=== PATIENT | female | born 1995 | race Caucasian/White ===

== ENCOUNTER 2020-06-17 04:35 | Inpatient (IN) ==
[2020-06-17] MEDS ORDERED: OXYTOCIN 30 UNITS/500 ML BAG IV PRN (05:32)
[2020-06-17 05:54] LABS: Hematocrit (blood only) 37.4 % (37-47); Hemoglobin 12.6 g/dL (12.0-16.0); Mean Corpuscular Hemoglobin 31.1 pg (25-34); Mean Corpuscular Volume 92.3 fL (80-100); Mean Platelet Volume 12.1 fL (7.4-10.4); Platelet Count 151 K/uL (130-400); RDW Coefficient of Variation 13.4 % (11.5-14.5); RDW Standard Deviation 45.5 fL (36.4-46.3); Red Blood Count 4.05 M/uL (4.2-5.4)
[2020-06-17] MEDS: LACTATED RINGER'S 1,000 ML IV PRN ×3 (06:08→12:09)
[2020-06-17 06:09] LABS: Mean Corpuscular Hgb Conc 33.7 g/dL (32-36)
[2020-06-17] MEDS ORDERED: ePHEDrine sulfate 50 MG/ML AMP ONE (06:13)
[2020-06-17] MEDS ORDERED: SODIUM CHLORIDE 0.9% INJ 10 ML VIAL ONE (06:13)
[2020-06-17] MEDS ORDERED: BUPIVACAINE 0.25% 30 ML VIAL ONE (06:14)
[2020-06-17] MEDS ORDERED: fentaNYL citrate 100 MCG/2 ML VIAL ONE ×2 (06:14→13:35)
[2020-06-17] MEDS ORDERED: fentaNYL 2MCG/ML ROPIVACAINE 1.25MG/ML 100 ML BAG EPI ONE (06:15)
--- NOTE | 2020-06-17 06:42 | Anesthesiology Consultation ---
Date of Service June 17, 2020 Assessment & Plan Chart Review Chart Review: Acceptable Risk for Surgery, Patient NOT seen in Pre Admission Testing and Acceptable Risk for Labor Epidural Consults Requested none ASA ASA2 Proposed Anesthesia Anesthesia Type: Labor Epidural and CSE Risk / Benefits Reviewed With: PT / POA / Parent / Guardian, Accepts Plan and Informed Consent Obtained History Height/Weight Height: 5 ft 3 in Weight: 68.946 kg Allergies Allergy/AdvReac Type Severity Reaction Status Date / Time No Known Allergies Allergy Unverified 07/30/19 21:00 Medications Home Medications Medication Instructions Recorded Confirmed Last Taken PNV cmb#95-ferrous fumarate-FA 1 tab PO DAILY 07/30/19 06/17/20 06/16/20 [] NPO Date Last Intake of Fluids: 06/17/20 Time Last Intake of Fluids: 02:00 Date Last Intake of Solids: 06/17/20 Time Last Intake of Solids: 02:00 Past Medical History Medical History Miscarriage Exercise / Class Metabolic Activity II 4-5 Yardwork/Stairs/Walk up hill Past Family History Family History Other No pertinent family history in first degree relatives Past Surgical History Surgical History No pertinent past surgical history [place] teeth extracted Past Anesthesia History No Hx of Anesthesia Complications and No Family Hx of Anesthesia Complications History of PONV No Hx of PONV and No Hx of Motion Sickness Social History Smoking Status: Never smoker Hx Alcohol Use: No Hx Substance Use: No Physical Exam Vital Signs Last Vital Signs Temp 36.8 C 06/17/20 04:51 Pulse 95 H 06/17/20 04:48 Resp 18 06/17/20 04:51 BP 132/73 06/17/20 04:48 Constitutional + obese ENMT Mouth: + small oral opening; no dentition abnormality Thyromental Distance: < 3.5 Finger Breadths Mallampati Class: II Neck normal visual inspection and trachea midline; neck extension not limited Respiratory normal respiratory effort Auscultation: lungs clear to auscultation bilaterally Cardiovascular Rate/Rhythm: regular rate and regular rhythm Heart Sounds: no murmur Vessels: no carotid bruit Musculoskeletal Spine: lumbar spine normal to inspection; normal cervical ROM Neurologic moves all extremities Motor/Sensory: no sensory deficit Psychiatric Orientation: alert and oriented x 3 Testing Laboratory Results 06/17/20 05:43
[2020-06-17] MEDS ORDERED: NALOXONE HCL 1 MG in SODIUM CHLORIDE 0.9% 1000ML 1,000 ML IV PRN ×2 (07:02→13:54)
[2020-06-17] MEDS ORDERED: NALOXONE HCL 0.4 MG/1 ML VIAL/CARP IV PRN ×2 (07:02→13:54)
[2020-06-17] MEDS ORDERED: fentaNYL 2MCG/ML ROPIVACAINE 1.25MG/ML 100 ML BAG EPI PRN (07:02)
[2020-06-17] MEDS ORDERED: PROMETHAZINE HCL 25 MG in SODIUM CHLORIDE 0.9% 50 ML IV PRN (07:02)
[2020-06-17] MEDS ORDERED: diphenhydrAMINE 50 MG/ML VIAL IV PRN ×2 (07:02→13:54)
[2020-06-17] MEDS ORDERED: ONDANSETRON INJ 2 MG/ML 2 ML VIAL IV PRN ×2 (07:02→13:54)
[2020-06-17] MEDS ORDERED: ePHEDrine sulfate 50 MG/ML AMP IV PRN ×2 (07:02→13:54)
--- NOTE | 2020-06-17 09:55 | Obstetrical Progress Note ---
Date of Service June 17, 2020 Subjective pt doing well FHR; CAT1 Ctx 2-4mins Ve 8// SROM- Clear Results & Data ([facility]) Vital Signs (Past 12 Hours) Vital Signs Temp Pulse Resp BP Pulse Ox 06/17/20 09:50 80 98 06/17/20 09:49 70 133/75 06/17/20 09:45 73 97 06/17/20 09:40 75 98 06/17/20 09:35 75 97 06/17/20 09:33 73 131/77 06/17/20 09:30 70 98 06/17/20 09:25 72 97 06/17/20 09:20 68 98 06/17/20 09:17 70 128/76 06/17/20 09:15 73 97 06/17/20 09:10 73 96 06/17/20 09:05 69 95 06/17/20 09:02 68 18 127/79 06/17/20 09:00 70 97 06/17/20 08:55 69 98 06/17/20 08:50 74 98 06/17/20 08:48 62 125/78 06/17/20 08:45 36.6 C 67 20 98 06/17/20 08:40 77 97 06/17/20 08:35 72 98 06/17/20 08:33 70 18 127/74 06/17/20 08:30 69 98 06/17/20 08:25 68 98 06/17/20 08:20 74 98 06/17/20 08:17 83 130/62 06/17/20 08:15 72 97 06/17/20 08:10 77 98 06/17/20 08:05 78 97 06/17/20 08:02 73 18 114/69 06/17/20 08:00 74 97 06/17/20 07:55 74 97 06/17/20 07:50 74 97 06/17/20 07:47 78 103/64 06/17/20 07:45 81 97 06/17/20 07:40 83 96 06/17/20 07:35 93 H 97 06/17/20 07:30 99 H 18 109/60 97 06/17/20 07:28 84 18 108/57 L 06/17/20 07:26 86 18 108/56 L 06/17/20 07:25 85 97 06/17/20 07:24 90 18 115/59 L 06/17/20 07:22 92 H 18 111/58 L 06/17/20 07:20 98 H 18 111/57 L 97 06/17/20 07:18 93 H 18 108/55 L 06/17/20 07:16 96 H 18 109/59 L 06/17/20 07:15 91 H 97 06/17/20 07:14 87 18 109/65 06/17/20 07:12 95 H 18 109/60 06/17/20 07:10 92 H 104/61 97 06/17/20 07:08 94 H 107/55 L 06/17/20 07:06 92 H 107/58 L 06/17/20 07:05 102 H 97 06/17/20 07:04 90 110/61 06/17/20 07:02 82 109/59 L 06/17/20 07:00 85 112/61 97 06/17/20 06:58 73 109/62 06/17/20 06:55 85 97 06/17/20 06:50 88 98 06/17/20 06:45 86 99 06/17/20 06:43 104 H 91 06/17/20 06:40 83 99 06/17/20 06:30 36.8 C 06/17/20 04:51 36.8 C 18 06/17/20 04:48 95 H 132/73
[2020-06-17] MEDS ORDERED: TERBUTALINE SULFATE 1 MG/ML VIAL ONE (13:02)
[2020-06-17] MEDS ORDERED: CITRIC ACID/SODIUM CITRATE 15 ML UDC ONE (13:10)
[2020-06-17] MEDS ORDERED: ceFAZolin 2000MG 2,000 MG/15 ML SYR IV ONE (13:15)
[2020-06-17] MEDS ORDERED: CITRIC ACID/SODIUM CITRATE 15 ML UDC PO ONE (13:15)
[2020-06-17] MEDS ORDERED: MoRPHine SULFATE PF 1 MG/ML 10 ML AMP/VIAL ONE (13:39)
[2020-06-17] MEDS ORDERED: MoRPHine SULFATE PF 1 MG/ML 10 ML AMP/VIAL INT SPINAL ONE (13:54)
[2020-06-17] MEDS ORDERED: MEPERIDINE HCL 25 MG/ML CARP/VIAL IV PRN (13:54)
[2020-06-17] MEDS ORDERED: NALOXONE HCL 0.08 MG in SYRINGE 1.8 ML IV PRN (13:54)
[2020-06-17] MEDS ORDERED: LACTATED RINGER'S 500 ML IV PRN (13:54)
[2020-06-17] MEDS ORDERED: PROMETHAZINE HCL 6.25 MG in SODIUM CHLORIDE 0.9% 50 ML IV PRN (13:54)
[2020-06-17] MEDS ORDERED: HYDROmorphone INJ 0.5 MG/0.5 ML SYR IV PRN (13:54)
[2020-06-17] MEDS ORDERED: LACTATED RINGER'S 1,000 ML IV SCH ×2 (13:57→14:30)
[2020-06-17] MEDS ORDERED: SODIUM CHLORIDE 0.9% 1000ML 1,000 ML IV SCH (14:00)
[2020-06-17] MEDS ORDERED: NO NARCOTICS OR SEDATIVES SCH (14:00)
[2020-06-17] MEDS ORDERED: OXYTOCIN 10 UNITS/ML VIAL ONE (14:01)
[2020-06-17] MEDS ORDERED: LIDOCAINE/EPINEPHRINE 2% 1:200,000 20 ML SDV ONE (14:01)
[2020-06-17] MEDS ORDERED: KETOROLAC 30 MG/ML VIAL ONE (14:01)
[2020-06-17] MEDS ORDERED: miSOPROStoL 200 MCG TAB ONE (14:13)
[2020-06-17] MEDS ORDERED: MAGNESIUM HYDROXIDE SUSP 30 ML UDC PO PRN (14:27)
[2020-06-17] MEDS ORDERED: HYDROCORTISONE ACETATE 25 MG SUPP PR PRN (14:27)
[2020-06-17] MEDS ORDERED: SUPERCREAM 0.870% 15 GM JAR EXT PRN (14:27)
[2020-06-17] MEDS ORDERED: SENNA 8.6 MG TAB PO PRN (14:27)
[2020-06-17] MEDS ORDERED: DIPHTHERIA/TETANUS/PERTUSSIS 0.5 ML SYR/VIAL IM ONE (14:27)
[2020-06-17] MEDS ORDERED: BENZOCAINE 20% AER SPR 82.5 GM CAN EXT PRN (14:27)
--- NOTE | 2020-06-17 14:27 | Obstetrical Progress Note ---
Date of Service June 17, 2020 Assessment & Plan Admission and Anticipated Discharge Date Admission Date: June 17, 2020 Subjective Late Note Entry Called to evaluate pt's cervical exam FHR; CAT1 VE; ? breech/ 10cm dilated Bedside sono; VT C/sec discussed with pt consent signed\ Anesthesia notified Results & Data ([facility]) Vital Signs (Past 12 Hours) Vital Signs Temp Pulse Resp BP Pulse Ox 06/17/20 13:18 142 H 120/60 06/17/20 13:15 118 H 97 06/17/20 13:10 126 H 99 06/17/20 13:05 122 H 98 06/17/20 13:00 108 H 97 06/17/20 12:55 115 H 98 06/17/20 12:50 88 99 06/17/20 12:48 83 137/83 06/17/20 12:45 77 99 06/17/20 12:40 74 97 06/17/20 12:35 71 97 06/17/20 12:34 64 134/77 06/17/20 12:30 75 97 06/17/20 12:25 71 98 06/17/20 12:20 81 98 06/17/20 12:17 68 131/78 06/17/20 12:15 68 98 06/17/20 12:10 78 98 06/17/20 12:05 85 98 06/17/20 12:03 77 119/67 06/17/20 12:00 77 98 06/17/20 11:55 82 98 06/17/20 11:50 84 98 06/17/20 11:45 75 97 06/17/20 11:40 78 97 06/17/20 11:35 80 97 06/17/20 11:33 77 20 124/72 06/17/20 11:30 76 97 06/17/20 11:25 78 98 06/17/20 11:20 72 98 06/17/20 11:17 83 119/70 06/17/20 11:15 86 98 06/17/20 11:10 71 97 06/17/20 11:05 74 97 06/17/20 11:04 76 16 120/70 06/17/20 11:00 69 98 06/17/20 10:55 36.4 C L 77 18 98 06/17/20 10:50 77 98 06/17/20 10:48 71 123/70 06/17/20 10:45 71 98 06/17/20 10:40 72 98 06/17/20 10:35 71 99 06/17/20 10:32 70 132/82 06/17/20 10:30 82 99 06/17/20 10:25 76 98 06/17/20 10:20 66 98 06/17/20 10:17 71 137/82 06/17/20 10:15 76 98 06/17/20 10:10 72 98 06/17/20 10:05 71 99 06/17/20 10:02 71 18 127/76 06/17/20 10:00 89 98 06/17/20 09:55 76 98 06/17/20 09:50 80 98 06/17/20 09:49 70 133/75 06/17/20 09:45 73 97 06/17/20 09:40 75 98 06/17/20 09:35 75 97 06/17/20 09:33 73 18 131/77 06/17/20 09:30 70 98 06/17/20 09:25 72 97 06/17/20 09:20 68 98 06/17/20 09:17 70 128/76 06/17/20 09:15 73 97 06/17/20 09:10 73 96 06/17/20 09:05 69 95 06/17/20 09:02 68 18 127/79 06/17/20 09:00 70 97 06/17/20 08:55 69 98 06/17/20 08:50 74 98 06/17/20 08:48 62 125/78 06/17/20 08:45 36.6 C 67 20 98 06/17/20 08:40 77 97 06/17/20 08:35 72 98 06/17/20 08:33 70 18 127/74 06/17/20 08:30 69 98 06/17/20 08:25 68 98 06/17/20 08:20 74 98 06/17/20 08:17 83 130/62 06/17/20 08:15 72 97 06/17/20 08:10 77 98 06/17/20 08:05 78 97 06/17/20 08:02 73 18 114/69 06/17/20 08:00 74 97 06/17/20 07:55 74 97 06/17/20 07:50 74 97 06/17/20 07:47 78 103/64 06/17/20 07:45 81 97 06/17/20 07:40 83 96 06/17/20 07:35 93 H 97 06/17/20 07:30 99 H 18 109/60 97 06/17/20 07:28 84 18 108/57 L 06/17/20 07:26 86 18 108/56 L 06/17/20 07:25 85 97 06/17/20 07:24 90 18 115/59 L 06/17/20 07:22 92 H 18 111/58 L 06/17/20 07:20 98 H 18 111/57 L 97 06/17/20 07:18 93 H 18 108/55 L 06/17/20 07:16 96 H 18 109/59 L 06/17/20 07:15 91 H 97 06/17/20 07:14 87 18 109/65 06/17/20 07:12 95 H 18 109/60 06/17/20 07:10 92 H 104/61 97 06/17/20 07:08 94 H 107/55 L 06/17/20 07:06 92 H 107/58 L 06/17/20 07:05 102 H 97 06/17/20 07:04 90 110/61 06/17/20 07:02 82 109/59 L 06/17/20 07:00 85 112/61 97 06/17/20 06:58 73 109/62 06/17/20 06:55 85 97 06/17/20 06:50 88 98 06/17/20 06:45 86 99 06/17/20 06:43 104 H 91 06/17/20 06:40 83 99 06/17/20 06:30 36.8 C 06/17/20 04:51 36.8 C 18 06/17/20 04:48 95 H 132/73
--- NOTE | 2020-06-17 14:32 | Post Operative Brief Note ---
Immediate Post Op Note v1 Date of Surgery June 17, 2020 Pre & Post Diagnosis Operation Date: 06/17/20 13:10 Pre-Op Diagnosis: Breech presentation. Post-Op Diagnosis: Same as above. Delivery of live male child at 1338 I identified the patient and participated in the time-out.: Yes Procedure Operation Date: 06/17/20 13:10 Actual Procedures p Section in LD(Bilateral) - Howard Freeman MD Surgeon Howard Freeman MD [employer] Agent dr haines Estimated Blood Loss 600 Findings Consistent with Post-Op Diagnosis Drains López Catheter
[2020-06-17] MEDS ORDERED: miSOPROStoL 200 MCG TAB PR ONE (14:39)
[2020-06-17] MEDS ORDERED: OXYTOCIN 10 UNITS/ML VIAL IM ONE (14:39)
[2020-06-17] MEDS ORDERED: OXYTOCIN 20 UNITS in LACTATED RINGER'S 1,000 ML IV SCH (14:45)
--- NOTE | 2020-06-17 14:50 | Operative Report (OR) ---
DATE OF OPERATION: 06/17/2020 INDICATION FOR PROCEDURE: A 24-year-old who presented with spontaneous rupture of membranes and was in labor. She was fully dilated and was found to have a sánchez breech presentation. Decision was therefore made to perform a section. The patient agreed to procedure and signed consent for surgery. She was taken to the operating room where she delivered a live in sánchez breech presentation. Weight and Apgars in the pediatric record. PREOPERATIVE DIAGNOSES: 1. at term. 2. Breech presentation. POSTOPERATIVE DIAGNOSES: Same. PROCEDURES: section for sánchez breech presentation. SURGEON: Howard Freeman MD SPOOL WINDER: Dr. Estefanía MD ANESTHESIA: Epidural. Dr. Hall is the attendant. ESTIMATED BLOOD LOSS: 600 mL IV FLUIDS: 1200 mL URINE OUTPUT: 50 mL clear urine at end of procedure. FINDINGS: Live infant in sánchez breech presentation. Uterus, adnexa and abdomen otherwise appeared grossly normal. PATHOLOGY: Placenta, cord blood and cord gas. DRAINS: López catheter. COMPLICATIONS: None. DISPOSITION: Stable to recovery room. DESCRIPTION OF PROCEDURE: The patient was taken to the operating room where she was prepped and draped in normal sterile fashion. A timeout was called. A Pfannenstiel incision was made with a scalpel and carried down to the fascia. Fascia was incised in the midline and extended laterally on both sides. Rectus abdominis muscle was sharply dissected in the fascia superiorly and inferiorly. Peritoneum was identified and entered sharply. Once inside the abdomen, findings were as dictated above. An Reginald retractor was placed in the abdomen for retraction. Vesicouterine peritoneum was sharply dissected off the lower segment of the uterus. A transverse incision was made in the uterus and extended laterally on both sides. is delivered with breech maneuvers, buttocks followed by both legs, torso, both arms and head. Cord was clamped and cut and handed over to the waiting pediatric team. Details of the 's information is in the respective pediatric record. Cord blood was obtained as well as cord gas. Placenta was manually removed. Uterus was exteriorized and cleared of all clots and debris. Uterus was closed in 2 layers with Vicryl. There was good hemostasis post repair. Copious amount of irrigation was used to irrigate the abdomen. Uterus was returned to the abdominal cavity. Once again, hemostasis was established. Peritoneum and rectus abdominus muscle loosely reapproximated together. Fascia was closed in a running fashion with Vicryl stitch. SubQ space was irrigated and skin was closed with 4-0 Monocryl. All instruments were removed from the abdomen and accounted for x2 including sponges, needles and retractors. Baby and mother are doing well in recovery. I attest to the content of the Intraoperative Record and any orders documented therein. Any exception s are noted below.
[2020-06-17 14:51] LABS: Base Excess Cord Venous Blood -3.9 mEq/L (-7.7-1.9); Cord Venous Blood HCO3 22 mmol/L (18.4-26.8); Cord Venous Blood PCO2 43 mmHg (30.4-57.2); Cord Venous Blood PO2 34 mmHg (14.1-43.3); Cord Venous Blood pH 7.33 (7.20-7.44)
--- NOTE | 2020-06-17 15:14 | Anesthesia Procedure Note ---
Date of Service June 17, 2020 Anesthesia Post Epidural Note Vital Signs Vital Signs: Temp Pulse Resp BP Pulse Ox 36.7 C 123 H 18 157/66 H 96 06/17/20 14:25 06/17/20 15:10 06/17/20 14:45 06/17/20 15:06 06/17/20 15:10 Notes Mental Status: alert / awake / arousable Nausea / Vomiting: adequately controlled Pain: adequately controlled Airway Patency, RR, SpO2: stable & adequate BP & HR: stable & adequate Hydration State: stable & adequate Neuraxial Anesthesia: was administered and sensory block is resolving Anesthetic Complications: no major complications apparent and Pt Satisfied with anesthetic care Epidural: Removed without complications and With tip intact
--- NOTE | 2020-06-17 15:14 | Anesthesiology Progress Note ---
Date of Service June 17, 2020 Anesthesia Post Procedure Vital Signs Vital Signs: Temp Pulse Resp BP Pulse Ox 06/17/20 15:10 123 H 96 06/17/20 15:06 123 H 157/66 H 06/17/20 15:05 120 H 96 06/17/20 15:00 114 H 96 06/17/20 14:56 148/61 H 06/17/20 14:55 113 H 97 06/17/20 14:50 114 H 96 06/17/20 14:46 113 H 152/63 H 06/17/20 14:45 114 H 18 97 06/17/20 14:40 119 H 97 06/17/20 14:36 125 H 114/53 L 06/17/20 14:35 120 H 18 97 06/17/20 14:31 116 H 94 06/17/20 14:30 117 H 96 06/17/20 14:25 36.7 C 96 H 20 110/75 96 06/17/20 13:18 142 H 120/60 06/17/20 13:15 118 H 97 06/17/20 13:10 126 H 99 06/17/20 13:05 122 H 98 06/17/20 13:00 108 H 97 06/17/20 12:55 115 H 98 06/17/20 12:50 88 99 06/17/20 12:48 83 137/83 06/17/20 12:45 77 99 06/17/20 12:40 74 97 06/17/20 12:35 71 97 06/17/20 12:34 64 134/77 06/17/20 12:30 75 97 06/17/20 12:25 71 98 06/17/20 12:20 81 98 06/17/20 12:17 68 131/78 06/17/20 12:15 68 98 06/17/20 12:10 78 98 06/17/20 12:05 85 98 06/17/20 12:03 77 119/67 06/17/20 12:00 77 98 06/17/20 11:55 82 98 06/17/20 11:50 84 98 06/17/20 11:45 75 97 06/17/20 11:40 78 97 06/17/20 11:35 80 97 06/17/20 11:33 77 20 124/72 10/27/20 11:30 76 97 06/17/20 11:25 78 98 06/17/20 11:20 72 98 06/17/20 11:17 83 119/70 06/17/20 11:15 86 98 06/17/20 11:10 71 97 06/17/20 11:05 74 97 06/17/20 11:04 76 16 120/70 06/17/20 11:00 69 98 06/17/20 10:55 36.4 C L 77 18 98 06/17/20 10:50 77 98 06/17/20 10:48 71 123/70 06/17/20 10:45 71 98 06/17/20 10:40 72 98 06/17/20 10:35 71 99 06/17/20 10:32 70 132/82 06/17/20 10:30 82 99 06/17/20 10:25 76 98 06/17/20 10:20 66 98 06/17/20 10:17 71 137/82 06/17/20 10:15 76 98 06/17/20 10:10 72 98 06/17/20 10:05 71 99 06/17/20 10:02 71 18 127/76 06/17/20 10:00 89 98 06/17/20 09:55 76 98 06/17/20 09:50 80 98 06/17/20 09:49 70 133/75 06/17/20 09:45 73 97 06/17/20 09:40 75 98 06/17/20 09:35 75 97 06/17/20 09:33 73 18 131/77 06/17/20 09:30 70 98 06/17/20 09:25 72 97 06/17/20 09:20 68 98 06/17/20 09:17 70 128/76 06/17/20 09:15 73 97 06/17/20 09:10 73 96 06/17/20 09:05 69 95 06/17/20 09:02 68 18 127/79 06/17/20 09:00 70 97 06/17/20 08:55 69 98 06/17/20 08:50 74 98 06/17/20 08:48 62 125/78 06/17/20 08:45 36.6 C 67 20 98 06/17/20 08:40 77 97 06/17/20 08:35 72 98 06/17/20 08:33 70 18 127/74 06/17/20 08:30 69 98 06/17/20 08:25 68 98 06/17/20 08:20 74 98 06/17/20 08:17 83 130/62 06/17/20 08:15 72 97 06/17/20 08:10 77 98 06/17/20 08:05 78 97 06/17/20 08:02 73 18 114/69 06/17/20 08:00 74 97 06/17/20 07:55 74 97 06/17/20 07:50 74 97 06/17/20 07:47 78 103/64 06/17/20 07:45 81 97 06/17/20 07:40 83 96 06/17/20 07:35 93 H 97 06/17/20 07:30 99 H 18 109/60 97 06/17/20 07:28 84 18 108/57 L 06/17/20 07:26 86 18 108/56 L 06/17/20 07:25 85 97 06/17/20 07:24 90 18 115/59 L 06/17/20 07:22 92 H 18 111/58 L 06/17/20 07:20 98 H 18 111/57 L 97 06/17/20 07:18 93 H 18 108/55 L 06/17/20 07:16 96 H 18 109/59 L 06/17/20 07:15 91 H 97 06/17/20 07:14 87 18 109/65 06/17/20 07:12 95 H 18 109/60 06/17/20 07:10 92 H 104/61 97 06/17/20 07:08 94 H 107/55 L 06/17/20 07:06 92 H 107/58 L 06/17/20 07:05 102 H 97 06/17/20 07:04 90 110/61 06/17/20 07:02 82 109/59 L 06/17/20 07:00 85 112/61 97 06/17/20 06:58 73 109/62 06/17/20 06:55 85 97 06/17/20 06:50 88 98 06/17/20 06:45 86 99 06/17/20 06:43 104 H 91 06/17/20 06:40 83 99 06/17/20 06:30 36.8 C 06/17/20 04:51 36.8 C 18 06/17/20 04:48 95 H 132/73 Transfer of Care Handoff Completed per policy Notes Mental Status: alert / awake / arousable Nausea / Vomiting: adequately controlled Pain: adequately controlled Airway Patency, RR, SpO2: stable & adequate BP & HR: stable & adequate Hydration State: stable & adequate Neuraxial Anesthesia: was administered and sensory block is resolving Anesthetic Complications: no major complications apparent and Pt Satisfied with anesthetic care
[2020-06-17] MEDS: MoRPHine SULFATE 2 MG/ML CARP IV PRN (18:29)
[2020-06-17] MEDS: KETOROLAC 30 MG/ML VIAL IV PRN (22:14)
[2020-06-17] MEDS: SIMETHICONE 80 MG CHEW PO SCH (22:15)
[2020-06-17] MEDS: DOCUSATE SODIUM 100 MG CAP PO SCH (23:39)
[2020-06-18] MEDS: MoRPHine SULFATE 2 MG/ML CARP IV PRN (03:35)
[2020-06-18] MEDS: KETOROLAC 30 MG/ML VIAL IV PRN (06:32)
[2020-06-18 06:58] LABS: Hematocrit (blood only) 28.1 % (37-47); Mean Corpuscular Hemoglobin 29.5 pg (25-34); Mean Corpuscular Volume 92.1 fL (80-100); Platelet Count 108 K/uL (130-400); RDW Coefficient of Variation 13.6 % (11.5-14.5); RDW Standard Deviation 45.3 fL (36.4-46.3); Red Blood Count 3.05 M/uL (4.2-5.4); White Blood Count 9.74 K/uL (4.8-10.8)
[2020-06-18 07:17] LABS: Basophils # (auto) 0.01 K/uL (0-0.2); Basophils % (auto) 0.1 %; Eosinophils # (auto) 0.01 K/uL (0-0.5); Eosinophils % (auto) 0.1 %; Immature Granulocytes # (auto) 0.02 K/uL (0.00-0.02); Immature Granulocytes % (auto) 0.2 %; Lymphocytes # (auto) 1.14 K/uL (1.2-3.4); Lymphocytes % (auto) 11.7 %; Monocytes # (auto) 0.69 K/uL (0.11-0.59); Monocytes % (auto) 7.1 %; Neutrophils # (auto) 7.87 K/uL (1.4-6.5); Neutrophils % (auto) 80.8 %; RBC Morphology Unremarkable
[2020-06-18] MEDS ORDERED: ONDANSETRON INJ 2 MG/ML 2 ML VIAL IV PRN (07:54)
[2020-06-18] MEDS ORDERED: DC INTRASPINAL MORPHINE ONE (07:54)
[2020-06-18] MEDS ORDERED: diphenhydrAMINE Capsule 25 MG CAP PO PRN (07:54)
[2020-06-18] MEDS ORDERED: diphenhydrAMINE 50 MG/ML VIAL IV PRN (07:54)
[2020-06-18] MEDS ORDERED: ZOLPIDEM TARTRATE 5 MG TAB PO PRN (07:54)
[2020-06-18] MEDS ORDERED: PROMETHAZINE HCL 25 MG in SODIUM CHLORIDE 0.9% 50 ML IV PRN (07:54)
[2020-06-18] MEDS ORDERED: oxyCODONE/ACETAMINOPHEN 5mg/325mg TAB PO PRN (07:55)
[2020-06-18] MEDS: SIMETHICONE 80 MG CHEW PO SCH ×3 (08:30→20:31)
[2020-06-18] MEDS: DOCUSATE SODIUM 100 MG CAP PO SCH ×2 (08:30→20:31)
[2020-06-18] MEDS: PRENATAL VITAMIN 1 TAB PO SCH (08:31)
[2020-06-18] MEDS: FERROUS SULFATE 325 MG TAB PO SCH (08:31)
--- NOTE | 2020-06-18 09:00 | Obstetrical Progress Note ---
Date of Service June 18, 2020 Assessment & Plan Admission and Anticipated Discharge Date Admission Date: June 17, 2020 Physical Exam Physical Exam: abdomen soft and non tender bandage is clean and dry passing flatus no calf tenderness ambulating well vaginal bleeding scant hgb 9.0 Results & Data ([facility]) Vital Signs (Past 12 Hours) Vital Signs Temp Pulse Resp BP Pulse Ox 06/18/20 05:37 18 97 06/18/20 04:30 18 97 06/18/20 03:45 36.8 C 91 H 18 113/76 97 06/18/20 03:30 18 96 06/18/20 02:30 18 97 06/18/20 01:30 18 96 06/18/20 00:30 18 97 06/17/20 23:39 18 97 06/17/20 23:37 37.5 C 75 18 122/76 97 06/17/20 22:30 18 97 06/17/20 21:30 18 97
[2020-06-18] MEDS: IBUPROFEN 600 MG TAB PO PRN ×3 (10:24→20:31)
[2020-06-18] MEDS ORDERED: bisacodyL 5 MG TABEC PO SCH (20:00)
[2020-06-19] MEDS: IBUPROFEN 600 MG TAB PO PRN ×2 (02:48→08:25)
[2020-06-19 06:51] LABS: Hematocrit (blood only) 29.3 % (37-47); Hemoglobin 9.4 g/dL (12.0-16.0)
[2020-06-19 07:40] VITALS: BP 105/66; PULSE 77; TEMP 97.9; O2SAT 98
[2020-06-19] MEDS: FERROUS SULFATE 325 MG TAB PO SCH (08:25)
[2020-06-19] MEDS: PRENATAL VITAMIN 1 TAB PO SCH (08:26)
[2020-06-19] MEDS: SIMETHICONE 80 MG CHEW PO SCH (08:27)
[2020-06-19] MEDS: DOCUSATE SODIUM 100 MG CAP PO SCH (08:29)
--- NOTE | 2020-06-19 10:09 | Obstetrical Progress Note ---
Date of Service June 19, 2020 Assessment & Plan (1) delivery delivered: c/sec day #2 pt doing well wishes to be disch home Subjective Ambulation: ambulating normally Voiding: no voiding problems Passing Gas:: Yes Diet Tolerance:: clear liquids Lochia:: Small Feeding Type:: breast feeding Review of Systems All systems reviewed & are unremarkable except as noted in HPI & below Physical Exam Constitutional WD/WN, vitals as above well developed and well nourished Eyes PERRL, conjunctivae normal, anicteric sclerae ENMT external ear and nose normal, oropharynx normal Neck trachea midline, no thyromegaly Respiratory normal respiratory effort, lungs clear to auscultation Cardiovascular RRR, no murmur, no edema Chest (Breasts) normal inspection/palpation of breasts Gastrointestinal (Abdomen) normal bowel sounds, soft, nontender, no hepatosplenomegaly Musculoskeletal no cyanosis or clubbing, extremities motor strength 5/5 Skin no rashes, warm and dry + incision (Clean,dry and intact) Neurologic patellar DTR's 2+ bilat, sensation intact Psychiatric A+Ox3, euthymic affect Genitourinary normal external appearance Lymphatic no cervical or axillary lymphadenopathy Results & Data ([facility]) Vital Signs (Past 12 Hours) Vital Signs Temp Pulse Resp BP Pulse Ox 06/19/20 07:38 36.6 C 77 18 105/66 98 06/19/20 00:00 36.8 C 83 18 112/66 99
--- NOTE | 2020-06-19 10:32 | Discharge Summary (DS) ---
HISTORY OF PRESENT ILLNESS: This is a 24-year-old G3, P0 who presented to labor and delivery on 06/17/2020. The patient was and was due on that date, 06/17/2020. She presented to labor and delivery with rupture of membranes around 2:30 a.m. She was admitted and progressed in labor. It was later on found during the day that the was breech. She went on therefore to have a section. Details of surgery and pediatric information is in the respective record. Surgery was unremarkable otherwise. The patient met all milestones in recovery and on postop day #1, which was 06/18/2020, patient was able to ambulate, tolerate p.o. food and meds. This morning, the patient is doing well and wishes to be discharged home. PAST MEDICAL HISTORY: No history of diabetes, hypertension or asthma. PAST SURGICAL HISTORY: The patient has had a history of dental surgery. SOCIAL HISTORY: The patient is , lives with spouse. Denies tobacco, drug or alcohol use. The patient is a nurse. FAMILY HISTORY: Noncontributory. ALLERGIES: The patient has no known drug allergies. PHYSICAL EXAMINATION: GENERAL: Well-developed, well-nourished white female in no acute distress. VITAL SIGNS: This morning, blood pressure is 105/66, pulse 77, respirations 18, temperature 36.6. HEART: S1, S2, regular rhythm and rate. LUNGS: Clear to auscultation bilaterally. ABDOMEN: Nontender, nondistended. Incision is clean, dry and intact. EXTREMITIES: No cyanosis or clubbing with minimal edema. LABORATORY DATA: Hemoglobin is 9.4, hematocrit is 29. CONDITION ON DISCHARGE: Stable. OPERATION: section. DISCHARGE DIAGNOSIS: Postoperative after section. PLAN ON DISCHARGE: The patient is discharged home with instructions regarding activity, diet and followup appointment and medications.
[2020-06-19] MEDS ORDERED: bisacodyL 10 MG SUPP PR PRN (14:27)
== END 2020-06-19 11:25 | disposition home or self-care (01) | DRG 788 ==
LOC: OPB 04:35 → 4S1 04:41 → 4S2 17:00

== ENCOUNTER 2022-04-10 07:27 | Inpatient (IN) ==
[2022-04-10] MEDS: LACTATED RINGER'S 1,000 ML IV PRN ×3 (08:10→12:16)
[2022-04-10] MEDS ORDERED: OXYTOCIN 30 UNITS/500 ML BAG IV PRN ×2 (08:12→16:12)
[2022-04-10] MEDS ORDERED: ePHEDrine sulfate 50 MG/ML AMP ONE (08:22)
[2022-04-10] MEDS ORDERED: fentaNYL citrate 100 MCG/2 ML VIAL ONE (08:22)
[2022-04-10] MEDS ORDERED: SODIUM CHLORIDE 0.9% INJ 10 ML VIAL ONE (08:22)
[2022-04-10] MEDS ORDERED: LIDOCAINE 2%/EPINEPHRINE 1:200,000 20 ML SDV ONE (08:22)
[2022-04-10] MEDS ORDERED: BUPIVACAINE 0.25% 30 ML VIAL ONE (08:22)
[2022-04-10] MEDS ORDERED: fentaNYL 2MCG/ML ROPIVACAINE 1.25MG/ML 100 ML BAG EPI ONE (08:23)
--- NOTE | 2022-04-10 08:29 | Anesthesiology Consultation ---
Date of Service April 10, 2022 Assessment & Plan Chart Review Chart Review: Acceptable Risk for Labor Epidural Consults Requested none ASA ASA2 Proposed Anesthesia Anesthesia Type: Labor Epidural Risk / Benefits Reviewed With: PT / POA / Parent / Guardian, Accepts Plan and Informed Consent Obtained History Allergies Allergy/AdvReac Type Severity Reaction Status Date / Time No Known Allergies Allergy Unverified 07/30/19 21:00 Medications Home Medications Medication Instructions Recorded Confirmed Last Taken vit no.95-ferrous 1 tab PO DAILY 07/30/19 06/17/20 06/16/20 fumarate 28 mg-folic acid 800 mcg tablet () docusate sodium 100 mg capsule 100 mg PO DAILY@08,21 #30 caps 06/19/20 Unknown ferrous sulfate 325 mg (65 mg 325 mg PO DAILY@08 #30 tabs 06/19/20 Unknown iron) tablet,delayed release ibuprofen 600 mg tablet 600 mg PO Q4H #30 tabs 06/19/20 Unknown oxycodone-acetaminophen 5 mg-325 1 - 2 tab PO Q4H #20 tabs 06/19/20 Unknown mg tablet (Percocet) Active Medications Generic Name Dose Route Start Last Admin Trade Name Freq PRN Reason Stop Dose Admin Lactated Ringer's 1,000 mls @ 150 mls/hr 04/10/22 08:12 04/10/22 08:10 Lr IV 04/12/22 08:11 999 mls/hr .[id number] PRN Administration L&D Protocol Protocol Past Medical History Medical History delivery delivered History of abnormal cervical Pap smear Miscarriage Exercise / Class Metabolic Activity II 4-5 Yardwork/Stairs/Walk up hill Past Family History Family History Other No pertinent family history in first degree relatives Past Surgical History Surgical History H/O colposcopy with cervical biopsy [place] teeth extracted Past Anesthesia History No Hx of Anesthesia Complications and No Family Hx of Anesthesia Complications History of PONV No Hx of PONV and No Hx of Motion Sickness Social History Smoking Status: Never smoker Hx Alcohol Use: No Hx Substance Use: No Physical Exam Vital Signs Last Vital Signs Pulse 82 04/10/22 07:32 BP 126/77 04/10/22 07:32 ENMT Mouth: no dentition abnormality Thyromental Distance: > or= 3.5 Finger Breadths Mallampati Class: II Neck normal visual inspection Respiratory normal respiratory effort Auscultation: lungs clear to auscultation bilaterally Cardiovascular Rate/Rhythm: regular rate and regular rhythm
[2022-04-10] MEDS ORDERED: fentaNYL 2MCG/ML ROPIVACAINE 1.25MG/ML 100 ML BAG EPI PRN (08:31)
[2022-04-10] MEDS ORDERED: NALOXONE HCL 1 MG in SODIUM CHLORIDE 0.9% 1000ML 1,000 ML IV PRN (08:31)
[2022-04-10] MEDS ORDERED: diphenhydrAMINE 50 MG/ML VIAL IV PRN (08:31)
[2022-04-10] MEDS ORDERED: ePHEDrine sulfate 50 MG/ML AMP IV PRN (08:31)
[2022-04-10] MEDS ORDERED: ONDANSETRON INJ 2 MG/ML 2 ML VIAL IV PRN (08:31)
[2022-04-10] MEDS ORDERED: NALBUPHINE HCL INJ 10 MG/ML AMP IV PRN (08:31)
[2022-04-10] MEDS ORDERED: NALOXONE HCL 0.4 MG/1 ML VIAL/CARP IV PRN (08:31)
--- NOTE | 2022-04-10 08:32 | History & Physical Report ---
Date of Service April 10, 2022 Assessment & Plan (1) Active labor at term: Plan: 26 yo at 40.4 wks , h/o C Section for breech, desires TOLAC/ , in active labor, desires epidural VSS Afebrile FHR reassuring [place] consent [place] [facility] [place]/ Being admitted, epidural for pain Anticipate succesfull (2) Encounter for trial of labor: (3) History of delivery: Admission and Anticipated Discharge Date Admission Date: April 10, 2022 History of Present Illness Primary Care Provider: NO PCP Patient is a 26 yo [id number] at 40.4 wks who was scheduled for IOL for TOLAC, h/o C section in 05/2020 for Breech. Ctxs started around 4 am and got closer and more painful after 5:30 pm No LOF/VB +FM's Her has been otherwise uncomplicated. She understands the risks of uterine rupture and signed an informed consent from [facility] [place]( benefits and risks of TOLAC/ vs Repeat CS) GBS negative COVID negative Allergies Allergy/AdvReac Type Severity Reaction Status Date / Time No Known Allergies Allergy Unverified 07/30/19 21:00 Home Medications Medication Instructions Recorded Confirmed Type vit no.95-ferrous 1 tab PO DAILY 07/30/19 06/17/20 History fumarate 28 mg-folic acid 800 mcg tablet () docusate sodium 100 mg capsule 100 mg PO DAILY@,21 #30 caps 06/19/20 Rx ferrous sulfate 325 mg (65 mg 325 mg PO DAILY@08 #30 tabs 06/19/20 Rx iron) tablet,delayed release ibuprofen 600 mg tablet 600 mg PO Q4H #30 tabs 06/19/20 Rx oxycodone-acetaminophen 5 mg-325 1 - 2 tab PO Q4H #20 tabs 06/19/20 Rx mg tablet (Percocet) Patient History Medical History delivery delivered History of abnormal cervical Pap smear Miscarriage Surgical History H/O colposcopy with cervical biopsy [place] teeth extracted Family History Other No pertinent family history in first degree relatives Social History Smoking Status: Never smoker Hx Alcohol Use: No Hx Substance Use: No Preferred Language: Danish Beliefs That Will Affect Care: None marital status: Current Living Situation: Spouse Feels Safe at Home: Yes Assistive Devices: None [employer]ER History No h/o STD's, no h/o HSV/ Chlam/ GC Review of Systems as per Subjective / HPI Physical Exam Constitutional: WD/WN, vitals as above well developed, well nourished and + acute distress (Crying with contractions) Genitourinary: normal external appearance OB Exam Abdomen: + vertex (confirmed with bed side US) Manual OB Exam: + cervical dilation 7 cm, + cervical effacement 90% and + station -1 OB Exam Monitor Tracing: + external uterine monitor used and + category I Results & Data ([facility]) Vital Signs (Past 12 Hours) Vital Signs Pulse BP 04/10/22 07:32 82 126/77
[2022-04-10 08:42] LABS: Hematocrit (blood only) 35.7 % (34.1-44.9); Hemoglobin 11.2 g/dl (12.0-16.0); Mean Corpuscular Hemoglobin 26.9 pg (25.0-34.0); Mean Corpuscular Hgb Conc 31.4 g/dL (32.0-36.0); Mean Corpuscular Volume 85.8 fL (80.0-100.0); Mean Platelet Volume 12.6 fL (9.4-12.3); Platelet Count 126 K/uL (130-400); RDW Coefficient of Variation 13.4 % (11.5-14.5); RDW Standard Deviation 40.9 fL (36.4-46.3); Red Blood Count 4.16 M/uL (3.93-5.22); White Blood Count 6.95 K/ul (4.8-10.8)
[2022-04-10 09:13] LABS: Alanine Aminotransferase 9 U/L (7-52); Albumin Globulin Ratio 1.3 (0.9-2); Albumin Level 3.5 gm/dl (3.4-5.0); Alkaline Phosphatase 176 U/L (34-104); Anion Gap 7 (3-11); Aspartate Aminotransferase 17 U/L (13-39); BUN Creatinine Ratio 21.2 (10-20); Bilirubin,Total 0.4 mg/dl (0.2-1.0); Blood Urea Nitrogen 14 mg/dl (6-23); Calcium 8.5 mg/dl (8.5-10.1); Carbon Dioxide 22 mmol/L (21-32); Chloride 107 mmol/L (98-107); Est GFR (African American) 139.3 ml/min; Est GFR (Non-African American) 120.2 ml/min; Globulin 2.7 gm/dl (2.5-4.0); Glucose 87 mg/dl (70-99(Fasting)); Sodium 136 mmol/L (136-145); Total Protein 6.2 gm/dl (6.0-8.3)
--- NOTE | 2022-04-10 09:54 | Obstetrical Progress Note ---
Date of Service April 10, 2022 Assessment & Plan Admission and Anticipated Discharge Date Admission Date: April 10, 2022 Subjective Patient is comfortable now, received epidural FHR had decel and recovered after position change, has moderate variability VE; 9/ 90%/ 0, large bulging bag, AROM'ed clear fluid Continue to monitor closely Results & Data ([facility]) Vital Signs (Past 12 Hours) Vital Signs Temp Pulse Resp BP Pulse Ox 04/10/22 09:18 71 99 04/10/22 09:51 76 100 04/10/22 09:46 97 H 100 04/10/22 09:41 87 100 04/10/22 09:36 84 100 04/10/22 09:35 81 135/64 04/10/22 09:31 83 124/66 100 04/10/22 09:26 81 99 04/10/22 09:24 79 98/56 L 04/10/22 09:21 76 106/57 L 99 04/10/22 09:16 71 99 04/10/22 09:12 95 H 118/57 L 04/10/22 09:11 94 H 98 04/10/22 09:09 80 113/72 04/10/22 09:06 81 114/61 100 04/10/22 09:03 80 108/56 L 04/10/22 09:01 85 98 04/10/22 09:00 84 105/57 L 04/10/22 08:56 86 99 04/10/22 08:57 96 H 110/64 04/10/22 08:52 18 04/10/22 08:52 37.1 C 18 04/10/22 08:54 80 110/63 04/10/22 08:51 81 105/65 100 04/10/22 08:48 86 123/76 04/10/22 08:46 85 99 04/10/22 08:41 88 99 04/10/22 08:36 82 100 04/10/22 08:31 94 H 99 04/10/22 07:32 82 126/77
--- NOTE | 2022-04-10 11:19 | Obstetrical Progress Note ---
Date of Service April 10, 2022 Assessment & Plan Admission and Anticipated Discharge Date Admission Date: April 10, 2022 Subjective Patient is reevaluated VE; 10/100%/1, tried few pushes but unable to bring head down, ROP No urge to push FHR categ Continue to monitor and labor down Results & Data ([facility]) Vital Signs (Past 12 Hours) Vital Signs Temp Pulse Resp BP Pulse Ox 04/10/22 09:18 71 99 04/10/22 11:16 76 97 04/10/22 11:11 72 97 04/10/22 11:10 100 H 136/59 L 04/10/22 11:06 72 98 04/10/22 11:01 138 H 99 04/10/22 10:54 37.7 C H 04/10/22 10:56 81 98 04/10/22 10:30 18 04/10/22 10:30 18 04/10/22 10:53 109 H 111/72 04/10/22 10:43 18 04/10/22 10:43 18 04/10/22 10:51 86 98 04/10/22 10:46 88 99 04/10/22 10:41 98 H 99 04/10/22 10:39 85 111/64 04/10/22 10:36 82 99 04/10/22 10:31 78 98 04/10/22 10:26 84 99 04/10/22 10:23 82 116/63 04/10/22 08:29 16 04/10/22 08:29 16 04/10/22 10:21 86 100 04/10/22 09:30 16 04/10/22 09:30 16 04/10/22 10:16 78 98 04/10/22 10:00 16 04/10/22 10:00 16 04/10/22 10:11 75 99 04/10/22 10:10 86 119/58 L 04/10/22 10:06 78 99 04/10/22 10:01 89 98 04/10/22 09:56 84 100 04/10/22 09:54 80 108/58 L 04/10/22 09:51 76 100 04/10/22 09:46 97 H 100 04/10/22 09:41 87 100 04/10/22 09:36 84 100 04/10/22 09:35 81 135/64 04/10/22 09:31 83 124/66 100 04/10/22 09:26 81 99 04/10/22 09:24 79 98/56 L 04/10/22 09:21 76 106/57 L 99 04/10/22 09:16 71 99 04/10/22 09:12 95 H 118/57 L 04/10/22 09:11 94 H 98 04/10/22 09:09 80 113/72 04/10/22 09:06 81 114/61 100 04/10/22 09:03 80 108/56 L 04/10/22 09:01 85 98 04/10/22 09:00 84 105/57 L 04/10/22 08:56 86 99 04/10/22 08:57 96 H 110/64 04/10/22 08:52 18 04/10/22 08:52 37.1 C 18 04/10/22 08:54 80 110/63 04/10/22 08:51 81 105/65 100 04/10/22 08:48 86 123/76 04/10/22 08:46 85 99 04/10/22 08:41 88 99 04/10/22 08:36 82 100 04/10/22 08:31 94 H 99 04/10/22 07:32 82 126/77
--- NOTE | 2022-04-10 13:38 | Obstetrical Progress Note ---
Date of Service April 10, 2022 Assessment & Plan Admission and Anticipated Discharge Date Admission Date: April 10, 2022 Subjective Patient labored down for about 2 hours Now feels pressure and urge to push Head is at +2 station, small caput FHR 120-130's with early decels to 100's with ctxs, moderate variability contractions irregular, 2-5 min Started pushing and low dose pitocin at 2miu/ min Continue to monitor closely Results & Data ([facility]) Vital Signs (Past 12 Hours) Vital Signs Temp Pulse Resp BP Pulse Ox 04/10/22 09:18 71 99 04/10/22 13:31 81 98 04/10/22 13:26 74 99 04/10/22 13:23 90 121/69 04/10/22 13:21 73 98 04/10/22 13:16 71 97 04/10/22 13:14 16 04/10/22 13:14 16 04/10/22 13:11 70 97 04/10/22 13:08 72 112/63 04/10/22 12:44 18 04/10/22 12:44 18 04/10/22 13:06 73 96 04/10/22 12:00 18 04/10/22 12:00 18 04/10/22 11:29 16 04/10/22 11:29 16 04/10/22 13:01 66 97 04/10/22 12:56 86 98 04/10/22 12:55 74 111/59 L 04/10/22 12:51 69 99 04/10/22 12:46 67 98 04/10/22 12:41 72 99 04/10/22 12:39 67 107/56 L 04/10/22 12:36 66 98 04/10/22 12:31 65 98 04/10/22 12:26 72 98 04/10/22 12:25 71 110/59 L 04/10/22 12:21 71 98 04/10/22 12:16 75 98 04/10/22 12:11 82 97 04/10/22 12:08 76 112/63 04/10/22 12:06 72 97 04/10/22 12:01 73 97 04/10/22 11:56 72 97 04/10/22 11:53 75 112/63 04/10/22 11:51 72 98 04/10/22 11:46 71 98 04/10/22 11:41 80 98 04/10/22 11:36 75 98 04/10/22 11:31 76 97 04/10/22 11:26 71 98 04/10/22 11:24 80 125/62 04/10/22 11:21 74 98 04/10/22 11:16 76 97 04/10/22 11:11 72 97 04/10/22 11:10 100 H 136/59 L 04/10/22 11:06 72 98 04/10/22 11:01 138 H 99 04/10/22 10:54 37.7 C H 04/10/22 10:56 81 98 04/10/22 10:30 18 04/10/22 10:30 18 04/10/22 10:53 109 H 111/72 04/10/22 10:43 18 04/10/22 10:43 18 04/10/22 10:51 86 98 04/10/22 10:46 88 99 04/10/22 10:41 98 H 99 04/10/22 10:39 85 111/64 04/10/22 10:36 82 99 04/10/22 10:31 78 98 04/10/22 10:26 84 99 04/10/22 10:23 82 116/63 04/10/22 08:29 16 04/10/22 08:29 16 04/10/22 10:21 86 100 04/10/22 09:30 16 04/10/22 09:30 16 04/10/22 10:16 78 98 04/10/22 10:00 16 04/10/22 10:00 16 04/10/22 10:11 75 99 04/10/22 10:10 86 119/58 L 04/10/22 10:06 78 99 04/10/22 10:01 89 98 04/10/22 09:56 84 100 04/10/22 09:54 80 108/58 L 04/10/22 09:51 76 100 04/10/22 09:46 97 H 100 04/10/22 09:41 87 100 04/10/22 09:36 84 100 04/10/22 09:35 81 135/64 04/10/22 09:31 83 124/66 100 04/10/22 09:26 81 99 04/10/22 09:24 79 98/56 L 04/10/22 09:21 76 106/57 L 99 04/10/22 09:16 71 99 04/10/22 09:12 95 H 118/57 L 04/10/22 09:11 94 H 98 04/10/22 09:09 80 113/72 04/10/22 09:06 81 114/61 100 04/10/22 09:03 80 108/56 L 04/10/22 09:01 85 98 04/10/22 09:00 84 105/57 L 04/10/22 08:56 86 99 04/10/22 08:57 96 H 110/64 04/10/22 08:52 18 04/10/22 08:52 37.1 C 18 04/10/22 08:54 80 110/63 04/10/22 08:51 81 105/65 100 04/10/22 08:48 86 123/76 04/10/22 08:46 85 99 04/10/22 08:41 88 99 04/10/22 08:36 82 100 04/10/22 08:31 94 H 99 04/10/22 07:32 82 126/77
[2022-04-10] MEDS ORDERED: METHYLERGONOVINE MALEATE 0.2 MG/ML AMP ONE (16:05)
[2022-04-10] MEDS ORDERED: DIPHTHERIA/TETANUS/PERTUSSIS 0.5 ML SYR/VIAL IM ONE (16:12)
[2022-04-10] MEDS ORDERED: ACETAMINOPHEN W/CODEINE #3 1 TAB PO PRN (16:12)
[2022-04-10] MEDS ORDERED: ACETAMINOPHEN 325 MG TAB PO PRN (16:12)
[2022-04-10] MEDS ORDERED: HYDROCORTISONE ACETATE 25 MG SUPP PR PRN (16:12)
[2022-04-10] MEDS ORDERED: METHYLERGONOVINE MALEATE 0.2 MG/ML AMP IM ONE (16:12)
[2022-04-10] MEDS ORDERED: oxyCODONE/ACETAMINOPHEN 5mg/325mg TAB PO PRN (16:12)
[2022-04-10] MEDS ORDERED: bisacodyL 10 MG SUPP PR PRN (16:12)
[2022-04-10] MEDS ORDERED: BENZOCAINE 20% AER SPR 82.5 GM CAN EXT PRN (16:12)
--- NOTE | 2022-04-10 16:49 | Anesthesia Procedure Note ---
Date of Service April 10, 2022 Anesthesia Post Epidural Note Vital Signs Vital Signs: Temp Pulse Resp BP Pulse Ox 99.7 F H 80 20 139/67 98 04/10/22 13:24 04/10/22 16:38 04/10/22 13:45 04/10/22 16:38 04/10/22 16:12 Notes Mental Status: alert / awake / arousable and participated in evaluation Nausea / Vomiting: adequately controlled Pain: adequately controlled Airway Patency, RR, SpO2: stable & adequate BP & HR: stable & adequate Hydration State: stable & adequate Neuraxial Anesthesia: was administered and sensory block is resolving Anesthetic Complications: no major complications apparent and Pt Satisfied with anesthetic care Epidural: Removed without complications and With tip intact
[2022-04-10] MEDS: IBUPROFEN 600 MG TAB PO PRN (17:17)
--- NOTE | 2022-04-10 17:59 | Obstetrical Progress Note ---
Date of Service April 10, 2022 Assessment & Plan Admission and Anticipated Discharge Date Admission Date: April 10, 2022 Subjective Patient was delivered by Dr Bales while I was in ER/ OR for another emergency. Mom and baby stable. Continue to monitor. Results & Data ([facility]) Vital Signs (Past 12 Hours) Vital Signs Temp Pulse Resp BP Pulse Ox 04/10/22 09:18 71 99 04/10/22 17:53 85 115/66 04/10/22 17:38 73 123/69 04/10/22 17:23 79 124/70 04/10/22 17:08 72 133/76 04/10/22 16:54 74 122/58 L 04/10/22 16:38 80 139/67 04/10/22 16:23 80 128/60 04/10/22 16:12 91 H 98 04/10/22 16:08 98 H 137/68 04/10/22 16:07 99 H 97 04/10/22 16:02 100 H 97 04/10/22 15:58 117 H 92 04/10/22 15:57 98 H 96 04/10/22 15:53 77 132/64 04/10/22 15:52 73 98 04/10/22 15:51 75 89 L 04/10/22 15:47 92 H 93 04/10/22 15:42 90 04/10/22 15:42 85 04/10/22 15:42 75 98 04/10/22 15:40 74 124/67 04/10/22 15:37 80 97 04/10/22 15:35 83 91 04/10/22 15:32 80 98 04/10/22 15:29 85 83 L 04/10/22 15:27 79 97 04/10/22 15:25 71 124/68 04/10/22 15:22 72 99 04/10/22 15:21 75 87 L 04/10/22 15:17 80 99 04/10/22 15:12 75 100 04/10/22 15:08 95 H 123/60 04/10/22 15:07 96 H 99 04/10/22 15:02 91 H 100 04/10/22 14:57 97 H 86 L 04/10/22 14:54 85 128/85 04/10/22 14:52 78 98 04/10/22 13:45 20 04/10/22 13:45 20 04/10/22 14:47 84 98 04/10/22 14:42 87 97 04/10/22 14:39 87 108/56 L 04/10/22 14:37 80 99 04/10/22 14:32 82 99 04/10/22 14:31 88 94 04/10/22 14:27 90 85 L 04/10/22 14:25 89 87 L 04/10/22 14:26 93 H 99/67 L 04/10/22 14:22 90 96 04/10/22 13:24 37.6 C H 04/10/22 14:17 120 H 97 04/10/22 14:12 89 96 04/10/22 14:10 98 H 120/77 04/10/22 14:07 88 94 04/10/22 14:01 93 04/10/22 14:01 85 04/10/22 14:01 89 97 04/10/22 13:56 89 L 04/10/22 13:56 84 04/10/22 13:56 83 97 04/10/22 13:54 86 125/63 04/10/22 13:51 90 94 04/10/22 13:50 91 H 90 04/10/22 13:46 70 94 04/10/22 13:44 87 93 04/10/22 13:41 65 97 04/10/22 13:40 69 128/62 04/10/22 13:38 78 87 L 04/10/22 13:36 77 97 04/10/22 13:31 81 98 04/10/22 13:26 74 99 04/10/22 13:23 90 121/69 04/10/22 13:21 73 98 04/10/22 13:16 71 97 04/10/22 13:14 16 04/10/22 13:14 16 04/10/22 13:11 70 97 04/10/22 13:08 72 112/63 04/10/22 12:44 18 04/10/22 12:44 18 04/10/22 13:06 73 96 04/10/22 12:00 18 04/10/22 12:00 18 04/10/22 11:29 16 04/10/22 11:29 16 04/10/22 13:01 66 97 04/10/22 12:56 86 98 08/20/22 12:55 74 111/59 L 04/10/22 12:51 69 99 04/10/22 12:46 67 98 04/10/22 12:41 72 99 04/10/22 12:39 67 107/56 L 04/10/22 12:36 66 98 04/10/22 12:31 65 98 04/10/22 12:26 72 98 04/10/22 12:25 71 110/59 L 04/10/22 12:21 71 98 04/10/22 12:16 75 98 04/10/22 12:11 82 97 04/10/22 12:08 76 112/63 04/10/22 12:06 72 97 04/10/22 12:01 73 97 04/10/22 11:56 72 97 04/10/22 11:53 75 112/63 04/10/22 11:51 72 98 04/10/22 11:46 71 98 04/10/22 11:41 80 98 04/10/22 11:36 75 98 04/10/22 11:31 76 97 04/10/22 11:26 71 98 04/10/22 11:24 80 125/62 04/10/22 11:21 74 98 04/10/22 11:16 76 97 04/10/22 11:11 72 97 04/10/22 11:10 100 H 136/59 L 04/10/22 11:06 72 98 04/10/22 11:01 138 H 99 04/10/22 10:54 37.7 C H 04/10/22 10:56 81 98 04/10/22 10:30 18 04/10/22 10:30 18 04/10/22 10:53 109 H 111/72 04/10/22 10:43 18 04/10/22 10:43 18 04/10/22 10:51 86 98 04/10/22 10:46 88 99 04/10/22 10:41 98 H 99 04/10/22 10:39 85 111/64 04/10/22 10:36 82 99 04/10/22 10:31 78 98 04/10/22 10:26 84 99 04/10/22 10:23 82 116/63 04/10/22 08:29 16 04/10/22 08:29 16 04/10/22 10:21 86 100 04/10/22 09:30 16 04/10/22 09:30 16 04/10/22 10:16 78 98 04/10/22 10:00 16 04/10/22 10:00 16 04/10/22 10:11 75 99 04/10/22 10:10 86 119/58 L 04/10/22 10:06 78 99 04/10/22 10:01 89 98 04/10/22 09:56 84 100 04/10/22 09:54 80 108/58 L 04/10/22 09:51 76 100 04/10/22 09:46 97 H 100 04/10/22 09:41 87 100 04/10/22 09:36 84 100 04/10/22 09:35 81 135/64 04/10/22 09:31 83 124/66 100 04/10/22 09:26 81 99 04/10/22 09:24 79 98/56 L 04/10/22 09:21 76 106/57 L 99 04/10/22 09:16 71 99 04/10/22 09:12 95 H 118/57 L 04/10/22 09:11 94 H 98 04/10/22 09:09 80 113/72 04/10/22 09:06 81 114/61 100 04/10/22 09:03 80 108/56 L 04/10/22 09:01 85 98 04/10/22 09:00 84 105/57 L 04/10/22 08:56 86 99 04/10/22 08:57 96 H 110/64 04/10/22 08:52 18 04/10/22 08:52 37.1 C 18 04/10/22 08:54 80 110/63 04/10/22 08:51 81 105/65 100 04/10/22 08:48 86 123/76 04/10/22 08:46 85 99 04/10/22 08:41 88 99 04/10/22 08:36 82 100 04/10/22 08:31 94 H 99 04/10/22 07:32 82 126/77
--- NOTE | 2022-04-10 18:04 | Delivery Summary ---
DELIVERY NOTE: She is a 4, para 2, two spontaneous ABs. Blood type is O positive, group B strep negative. First delivery was a for breech at 8 cm. She was brought in for a . I started care af ter she had been pushing for about an hour. The head was just about on the perineum. I had her push several times and she made good steady progress. I coached her up with pushing techniques. She was on 1 milliunit of Pitocin and she basically pushed out a live infant via direct occiput anterior pos ition over an intact perineum. was suctioned through the mouth and the nose. Cord was allowe d to pulse for 1 minute, then clamped, cut by the father. Cord blood was taken. With IV Pitocin run paul and IM Methergine given, the placenta was removed intact. Inspection of the perineum revealed a small laceration at about 7 o'clock in the vaginal opening and this was repaired with a running 2-0 Vicryl. Following this, hemostasis was good. The uterus contracted nicely. The patient tolerated t he procedure well. Estimated blood loss at delivery was 200 mL. Job ID: [id number]
[2022-04-10] MEDS: DOCUSATE SODIUM 100 MG CAP PO SCH (20:59)
[2022-04-11] MEDS: IBUPROFEN 600 MG TAB PO PRN ×2 (00:32→08:34)
[2022-04-11 06:45] LABS: Hemoglobin 11.5 g/dl (12.0-16.0); Mean Corpuscular Hemoglobin 27.8 pg (25.0-34.0); Mean Corpuscular Hgb Conc 31.9 g/dL (32.0-36.0); Mean Corpuscular Volume 87.2 fL (80.0-100.0); Mean Platelet Volume 12.3 fL (9.4-12.3); Platelet Count 118 K/uL (130-400); RDW Coefficient of Variation 13.7 % (11.5-14.5); RDW Standard Deviation 41.9 fL (36.4-46.3); Red Blood Count 4.13 M/uL (3.93-5.22)
[2022-04-11] MEDS ORDERED: PRENATAL VITAMIN 1 TAB PO SCH (08:00)
[2022-04-11] MEDS: DOCUSATE SODIUM 100 MG CAP PO SCH (08:34)
--- NOTE | 2022-04-11 09:45 | Obstetrical Progress Note ---
Date of Service April 11, 2022 Assessment & Plan Admission and Anticipated Discharge Date Admission Date: April 10, 2022 Subjective Patient is seen and examined. She feels well, no complaints. Ambulating without dizziness Voiding without difficulty Tolerating regular diet with out N&V Bleeding is minimal No fever/ chills/ CP/ SOB/ N&V/ Leg pain Breast and bottle feeding without problems Vital Signs Temp Pulse Resp BP Pulse Ox O2 Del Method 04/11/22 08:30 37.1 C 77 18 105/74 04/11/22 03:05 36.7 C 66 16 103/64 98 Room Air 04/11/22 00:15 36.7 C 68 16 114/68 98 Room Air Lab Results 04/10/22 04/10/22 04/10/22 Range/Units 08:30 08:30 08:30 WBC 6.95 (4.8-10.8) K/ul RBC 4.16 (3.93-5.22) M/uL Hgb 11.2 L (12.0-16.0) g/dl Hct 35.7 (34.1-44.9) % MCV 85.8 (80.0-100.0) fL MCH 26.9 (25.0-34.0) pg MCHC 31.4 L (32.0-36.0) g/dL RDW Std Deviation 40.9 (36.4-46.3) fL RDW Coeff of Bella 13.4 (11.5-14.5) % Plt Count 126 L (130-400) K/uL MPV 12.6 H (9.4-12.3) fL Sodium 136 (136-145) mmol/L Potassium 4.0 (3.5-5.1) mmol/L Chloride 107 (98-107) mmol/L Carbon Dioxide 22 (21-32) mmol/L Anion Gap 7 (3-11) BUN 14 (6-23) mg/dl Creatinine 0.66 (0.6-1.2) mg/dl Est Cr Clr Drug Dosing Not Reportable Est GFR ( Amer) 139.3 ml/min Est GFR (Non-Af Amer) 120.2 ml/min BUN/Creatinine Ratio 21.2 H (10-20) Glucose 87 (70-99(Fasting)) mg/dl Calcium 8.5 (8.5-10.1) mg/dl Total Bilirubin 0.4 (0.2-1.0) mg/dl AST 17 (13-39) U/L ALT 9 (7-52) U/L Alkaline Phosphatase 176 H (34-104) U/L Total Protein 6.2 (6.0-8.3) gm/dl Albumin 3.5 (3.4-5.0) gm/dl Globulin 2.7 (2.5-4.0) gm/dl Albumin/Globulin Ratio 1.3 (0.9-2) Blood Type O Positive Antibody Screen NEGATIVE 04/11/22 Range/Units 06:35 WBC 14.70 H (4.8-10.8) K/ul RBC 4.13 (3.93-5.22) M/uL Hgb 11.5 L (12.0-16.0) g/dl Hct 36.0 (34.1-44.9) % MCV 87.2 (80.0-100.0) fL MCH 27.8 (25.0-34.0) pg MCHC 31.9 L (32.0-36.0) g/dL RDW Std Deviation 41.9 (36.4-46.3) fL RDW Coeff of Bella 13.7 (11.5-14.5) % Plt Count 118 L (130-400) K/uL MPV 12.3 (9.4-12.3) fL Sodium (136-145) mmol/L Potassium (3.5-5.1) mmol/L Chloride (98-107) mmol/L Carbon Dioxide (21-32) mmol/L Anion Gap (3-11) BUN (6-23) mg/dl Creatinine (0.6-1.2) mg/dl Est Cr Clr Drug Dosing Est GFR ( Amer) ml/min Est GFR (Non-Af Amer) ml/min BUN/Creatinine Ratio (10-20) Glucose (70-99(Fasting)) mg/dl Calcium (8.5-10.1) mg/dl Total Bilirubin (0.2-1.0) mg/dl AST (13-39) U/L ALT (7-52) U/L Alkaline Phosphatase (34-104) U/L Total Protein (6.0-8.3) gm/dl Albumin (3.4-5.0) gm/dl Globulin (2.5-4.0) gm/dl Albumin/Globulin Ratio (0.9-2) Blood Type Antibody Screen PE: General: Alert, orientedx3, NAD Abd: soft, NT, fundus firm, below Umbilicus Perineum intact, Lochia rubra minimal Ext; NT, no edema AP: 26 yo s/p / , ppd# 1 VSS Afebrile doing well Continue routine care Desires d/c today All questions were answered D/C home , f/u in office Results & Data ([facility]) Vital Signs (Past 12 Hours) Vital Signs Temp Pulse Resp BP Pulse Ox O2 Del Method 04/11/22 08:30 37.1 C 77 18 105/74 04/11/22 03:05 36.7 C 66 16 103/64 98 Room Air 04/11/22 00:15 36.7 C 68 16 114/68 98 Room Air
[2022-04-11] MEDS ORDERED: bisacodyL 5 MG TABEC PO SCH (20:00)
== END 2022-04-11 16:15 | disposition home or self-care (01) | DRG 807 ==
LOC: OPB 07:27 → 4S1 07:28 → 4E2 19:30